=== PATIENT | female | born 1955 | race African-American/Black ===

== ENCOUNTER → 2017-09-20 | Outpatient (CLI) | payer BC, OTHER ==
[~2017-09-20] VITALS: Ht 160 cm; Wt 109.8 kg
[~2017-09-20] MED LIST: AMITRIPTYLINE H25 M2 PO; ASPIR 8181 MG PO; FLEXERIL PO; FLONASE 0.05%50 MCG NASAL; GLYBURIDE 5 MG T5 M1 PO; NEURONTIN600 MG PO; NORCO 5-325 TA1 EACH PO; NORFLEX100 MG PO; ZANTAC 150MG T150 MG PO
--- NOTE | ~2017-09-20 | HPC ---
[facility] [place] [address] PAIN MANAGEMENT CONSULTATION Name: HERLINDA ESPAÑA Room #: REG [facility].#: [id number] Admission: 09/20/17 Attend Phys: Cricket España MD Discharge: Date of : 53 Report #: [id number] THIS REPORT FOR: //name// CC: Cricket Snow DATE OF SERVICE: 09/20/2017 PRIMARY CARE PHYSICIAN: Sung Snow M.D. CHIEF COMPLAINT: Pain down in both legs. HISTORY OF PRESENT ILLNESS: The patient is a 62-year-old female who has been referred to the pain clinic for evaluation of back and leg pain. States that she has had pain in her low back area, which is very problematic. She states the pain is generally there most of the time. She rates it as a 9/10. It radiates in her back down into her legs and involves her feet. She is not sure of anything that has been significantly helpful. She has not had back surgery. She has tried pain medications and has had what sounds like epidural steroid injections in the past. She describes her discomfort as continuous, burning, shooting, cramping and sharp. She rates it as a 9/10 today. ALLERGIES: CEPHALOSPORINS, CELEBREX, AND VIOXX. MEDICATIONS: Flonase 0.05% nasal spray b.i.d., aspirin 81 mg, ranitidine 150 mg b.i.d., gabapentin 600 mg 1 t.i.d., Elavil 25 mg at bedtime, Flexeril 10 mg p.r.n. for spasms, Glyburide 5 mg daily. PAST MEDICAL HISTORY: Diabetes, asthma, stomach problems, and joint disease. PAST SURGICAL HISTORY: Bladder surgery. 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 Denies use of tobacco at this juncture. Denies use of alcoholic beverages. Denies use of drugs. REVIEW OF SYSTEMS: Questionnaire in the chart 14 points indicate generally good health, chronic cough, shortness of breath, asthma, diabetes, pain and discomfort down the legs, numbness and weakness. The other areas were reviewed and not problematic. LABORATORY DATA: The patient does not have any lab values available at the time of our interview. Last radiologic information was in 08/2009. This information has been purged from the computer. [facility] [address] [place] [address] PAIN MANAGEMENT CONSULTATION Name: HERLINDA ESPAÑA Room #: REG [facility]#: [id number] Admission: 09/20/17 Attend Phys: Cricket España MD Discharge: Date of : 53 Report #: [id number] PHYSICAL EXAMINATION: VITAL SIGNS: Blood pressure 153/69, pulse 90, respiratory rate 16, room air saturation 100%. Height 5 foot 3 inches, weight 242 pounds, BMI is 43. GENERAL: The patient is a well-developed, deconditioned female. Has a somewhat broad-based gait. Gait somewhat secondary to her obesity and body habitus. HEENT: Normocephalic, atraumatic. Pupils equal, round, reactive. Extraocular muscles intact. NECK: No JVD, no bruits. Good range of motion. HEART: Regular rate and rhythm. LUNGS: Clear. ABDOMEN: Protuberant. BACK: No step-offs, some mild muscle soreness in the area of the left and right posterior superior iliac spine area. EXTREMITIES: Upper extremities: Muscle strength 5/5. Pulse is within normal limits. Bilateral lower extremities with positive straight leg raising, internal and external rotation of the hip without discomfort. Left and right lateral bending somewhat limited. Left and right lateral rotation limited. Lumbar extension somewhat limited given the patient's body habitus. The patient complains of some weakness in her legs and discomfort down into her feet. IMPRESSION: 1. Lumbar radiculopathy with pain radiating down into her legs bilaterally in the L5-S1 distribution. 2. Obesity. 3. Diabetes. 4. Asthma. 5. Joint disease/arthritis. RECOMMENDATIONS: We discussed the treatment options with the patient. The patient indicates that she has been having pain and discomfort, which is radiating down into her legs. Notes some weakness, numbness and tingling in the L5-S1 distribution. Has pain, which is shooting, burning and cramping in the low back area. Has pain in the low back with some burning sensation in her feet. We have discussed the problems associated with lumbar radiculopathy. A model was used to demonstrate the normal anatomy and we also showed inflammation indicating the possible pathology associated with spinal stenosis in the lumbar area. Use of steroid medications in the patients with diabetes was described. We explained that her blood sugars may rise somewhat after the epidural steroid injection, but generally should return to normal. We discussed the possible complications of the procedure, which could include infection, increased muscle soreness, headache, bleeding, nerve damage, and spinal headache. PROCEDURE NOTE: The patient was taken to the procedure room. Assistance was provided. The patient was placed on the fluoroscopy table. Her back was sterilely prepped with a Betadine solution. This was allowed to dry. Fluoroscopy was used for an anterior, posterior and lateral viewing. A 0.25% [address] [address] PAIN MANAGEMENT CONSULTATION Name: HERLINDA ESPAÑA Room #: REG [facility]#: [id number] Admission: 09/20/17 Attend Phys: Cricket España MD Discharge: Date of : 53 Report #: [id number] bupivacaine was infiltrated into the area of the L5-S1 zone. A 17-gauge Tuohy with loss of resistance technique was used to gain access to the epidural space. There was no CSF, heme or paresthesia. A total of 80 mg Depo-Medrol, 40 mg triamcinolone and 2 mL of 0.25% bupivacaine was injected. After appropriate positioning was noted and the medication injected, the needle was withdrawn. There was no bleeding. A Band-Aid was then placed. The patient was then taken to the recovery room where she remained for an appropriate amount of time. A total of 13 seconds fluoro time was used. She will call us if she has any problems in the interim. We would like to thank you for letting us participate in her care. We hope she continues to improve. <ELECTRONICALLY SIGNED> By: Cricket España MD 10/18/17 1332 [id number] Cricket España MD /LISA
[2017-09-20 08:54] VITALS: BP 153/69
== END | disposition home or self-care (01) ==
LOC: PAIN 06:44
DX: M54.16 Radiculopathy, lumbar region (principal); E66.9 Obesity, unspecified; Z68.41 Body mass index [BMI] 40.0-44.9, adult; E11.9 Type 2 diabetes mellitus without complications; J45.909 Unspecified asthma, uncomplicated; M19.90 Unspecified osteoarthritis, unspecified site; Z79.899 Other long term (current) drug therapy